=== PATIENT | male | born 1985 | race Caucasian/White ===

== ENCOUNTER 2017-11-14 13:45 | Emergency (ER) | payer MEDICAID ==
[~2017-11-14] VITALS: Ht 177.8 cm; Wt 86.0 kg
[2017-11-14 13:59] VITALS: BP 115/80
[2017-11-14] MEDS ORDERED: HYDROcodone/acetaminophen 5mg/325mg tablet PO ONE (14:15)
[2017-11-14] MEDS ORDERED: HYDR-3965 PO (14:21)
== END 2017-11-14 15:16 | disposition home or self-care (01) ==
LOC: ER 13:47
DX: S42.001A Fracture of unspecified part of right clavicle, initial encounter for closed fracture (principal); F17.210 Nicotine dependence, cigarettes, uncomplicated; Z79.899 Other long term (current) drug therapy; W22.8XXA Striking against or struck by other objects, initial encounter; Y93.89 Activity, other specified; Y92.89 Other specified places as the place of occurrence of the external cause; Y99.8 Other external cause status
CPT/HCPCS: 73000; 99284; A4565